=== PATIENT | female | born 1980 | race Caucasian/White ===

== ENCOUNTER 2022-03-02 20:49 | Emergency (ER) | payer OTHER ==
[2022-03-02 21:11] VITALS: BMI 26.0
[2022-03-02 22:51] LABS: BASO % 0.6 % (0-2.0); EOS % 7.2 % (0-4.5); HEMATOCRIT 33.7 % (32.4-45.2); HEMOGLOBIN 11.2 GM/dL (10.7-15.3); LYMPH % 16.7 % (8-40); MCH 27.9 pg (25.7-33.7); MCHC 33.4 g/dl (32.0-36.0); MEAN CELL VOLUME 83.5 fl (80-96); MONO % 7.4 % (3.8-10.2); NEUT % 68.1 % (42.8-82.8); PLATELET COUNT 225 10^3/uL (134-434); RBC 4.03 M/mm3 (3.60-5.2); RDW 14.4 % (11.6-15.6); WHITE BLOOD COUNT 5.5 K/mm3 (4.0-10.0)
[2022-03-02 23:44] LABS: ALBUMIN 2.8 g/dl (3.4-5.0); BILIRUBIN,TOTAL 0.4 mg/dL (0.2-1); BLOOD UREA NITROGEN 5.8 mg/dL (7-18); CALCIUM 7.6 mg/dL (8.5-10.1); CREATININE 0.5 mg/dL (0.55-1.3); TOT PROT 6.3 g/dl (6.4-8.2)
[2022-03-02] MEDS ORDERED: ACETAMINOPHEN 1000 MG/100 ML BAG IVPB ONE (23:44)
[2022-03-02] MEDS ORDERED: ALBUTEROL SO4 2.5/IPRATROPIUM 0.5 INH SOL 3 ML VIAL.NEB. NEB ONE (23:44)
[2022-03-02] MEDS ORDERED: SODIUM CHLORIDE 0.9% 500 ML INFUS.BAG IV ONE (23:44)
[2022-03-02] MEDS ORDERED: ACETAMINOPHEN INJECTION 100 ML IVPB ONE (23:57)
[2022-03-03 01:38] VITALS: BP 100/56; PULSE 80; TEMP 98.4
== END 2022-03-03 04:15 | disposition left against medical advice (07) ==
LOC: JER 20:49
PROC: 3E0333Z Introduction of Anti-inflammatory into Peripheral Vein, Percutaneous Approach (ICD-10-PCS; principal; 2022-03-02)
DX: R07.9 Chest pain, unspecified (principal); K83.9 Disease of biliary tract, unspecified; R79.89 Other specified abnormal findings of blood chemistry
CPT/HCPCS: 36415; 71046-TC-FY; 74177-TC; 76705-TC; 80053; 83690; 84484; 84703; 85025; 93005; 93010; 99285-25

== ENCOUNTER 2022-03-05 08:12 | Emergency (ER) | payer BC, OTHER ==
[2022-03-05 08:25] VITALS: TEMP 97.3; BMI 26.2
[2022-03-05] MEDS ORDERED: METOCLOPRAMIDE HCL INJECTION 10 MG/2 ML VIAL IVPUSH ONE (09:08)
[2022-03-05] MEDS ORDERED: SODIUM CHLORIDE 0.9% 500 ML INFUS.BAG IV ONE (09:08)
[2022-03-05] MEDS ORDERED: ACETAMINOPHEN 1000 MG/100 ML BAG IVPB ONE (09:09)
[2022-03-05] MEDS ORDERED: METOCLOPRAMIDE HCL INJECTION 10 MG/2 ML VIAL ONE (09:28)
[2022-03-05] MEDS ORDERED: ACETAMINOPHEN INJECTION 100 ML IVPB ONE (09:29)
[2022-03-05 10:36] LABS: BASO % 0.6 % (0-2.0); HEMATOCRIT 34.3 % (32.4-45.2); HEMOGLOBIN 11.4 GM/dL (10.7-15.3); LYMPH % 20.2 % (8-40); MCH 27.7 pg (25.7-33.7); MCHC 33.2 g/dl (32.0-36.0); MEAN CELL VOLUME 83.3 fl (80-96); MEAN PLT VOLUME 8.7 fl (7.5-11.1); MONO % 11.9 % (3.8-10.2); NEUT % 59.3 % (42.8-82.8); PLATELET COUNT 278 10^3/uL (134-434); RBC 4.11 M/mm3 (3.60-5.2); RDW 14.4 % (11.6-15.6); WHITE BLOOD COUNT 5.8 K/mm3 (4.0-10.0)
[2022-03-05 10:40] LABS: ALBUMIN 3.4 g/dl (3.4-5.0); BLOOD UREA NITROGEN 4.8 mg/dL (7-18)
[2022-03-05 10:42] LABS: CREATININE 0.6 mg/dL (0.55-1.3)
[2022-03-05 10:44] LABS: BILIRUBIN,TOTAL 0.4 mg/dL (0.2-1); TOT PROT 7.9 g/dl (6.4-8.2)
[2022-03-05] MEDS ORDERED: LIDOCAINE 5% TOPICAL PATCH TP ONE (12:10)
[2022-03-05] MEDS ORDERED: LIDOCAINE 5% TOPICAL PATCH ONE (12:14)
[2022-03-05 12:39] VITALS: BP 100/70; PULSE 78
[2022-03-05] MEDS ORDERED: LIDOCAINE PATCH REMOVAL MC SCH (23:00)
== END 2022-03-05 12:35 | disposition home or self-care (01) ==
LOC: JER 08:12
PROC: 3E033NZ Introduction of Analgesics, Hypnotics, Sedatives into Peripheral Vein, Percutaneous Approach (ICD-10-PCS; principal; 2022-03-05)
PROC: 3E033GC Introduction of Other Therapeutic Substance into Peripheral Vein, Percutaneous Approach (ICD-10-PCS; 2022-03-05)
DX: R51.9 Headache, unspecified (principal)
CPT/HCPCS: 36415; 70450-TC; 80053; 83690; 85025; 99285-25

== ENCOUNTER 2022-11-01 10:29 | Emergency (ER) | payer BC, OTHER ==
[2022-11-01 10:45] VITALS: BP 157/58; PULSE 84; RESP 20; TEMP 97.8; BMI 26.2
[2022-11-01] MEDS ORDERED: ALBUTEROL SO4 2.5/IPRATROPIUM 0.5 INH SOL 3 ML VIAL.NEB. NEB ONE ×2 (12:16→12:21)
[2022-11-01] MEDS ORDERED: predniSONE 20 MG TABLET (UD) PO ONE (12:20)
[2022-11-01] MEDS ORDERED: predniSONE 20 MG TABLET (UD) ONE (12:21)
== END 2022-11-01 12:57 | disposition home or self-care (01) ==
LOC: JER 10:29 → JERFT 10:29
PROC: 3E0F7GC Introduction of Other Therapeutic Substance into Respiratory Tract, Via Natural or Artificial Opening (ICD-10-PCS; principal; 2022-11-01)
DX: J45.21 Mild intermittent asthma with (acute) exacerbation (principal)
CPT/HCPCS: 71046-TC-FY; 99284-25

== ENCOUNTER 2023-04-12 14:02 | Emergency (ER) | payer BC, OTHER ==
[2023-04-12 14:10] VITALS: BP 109/55; PULSE 75; RESP 20; TEMP 98; BMI 26.0
[2023-04-12] MEDS ORDERED: ALBUTEROL SO4 2.5/IPRATROPIUM 0.5 INH SOL 3 ML VIAL.NEB. NEB ONE ×5 (14:23→15:54)
[2023-04-12] MEDS ORDERED: DEXAMETHASONE SOD PHOSPHATE 10 MG/1 ML VIAL IM ONE (14:59)
[2023-04-12] MEDS ORDERED: DEXAMETHASONE SOD PHOSPHATE 10 MG/1 ML VIAL ONE (14:59)
[2023-04-12] MEDS ORDERED: MAGNESIUM SULF 50% (8.12 MEQ/2 ML-1 GM VIAL) IVPB ONE (15:37)
[2023-04-12] MEDS ORDERED: MAGNESIUM SULFATE IN WATER 2 GM/50 ML IVPB IVPB ONE (15:57)
[2023-04-12 16:17] LABS: BASO % 0.7 % (0-2.0); EOS % 11.5 % (0-4.5); HEMATOCRIT 35.9 % (32.4-45.2); HEMOGLOBIN 11.7 GM/dL (10.7-15.3); LYMPH % 22.4 % (8-40); MCH 26.6 pg (25.7-33.7); MCHC 32.5 g/dl (32.0-36.0); MEAN CELL VOLUME 81.7 fl (80-96); MEAN PLT VOLUME 8.9 fl (7.5-11.1); MONO % 5.4 % (3.8-10.2); PLATELET COUNT 254 10^3/uL (134-434); RDW 17.6 % (11.6-15.6); WHITE BLOOD COUNT 8.5 K/mm3 (4.0-10.0)
[2023-04-12 16:34] LABS: CHLORIDE 107 mmol/L (98-107); POTASSIUM 4.1 mmol/L (3.5-5.1); SODIUM 140 mmol/L (136-145)
[2023-04-12 16:36] LABS: ALBUMIN 3.7 g/dl (3.4-5.0); ANION GAP 7 MMOL/L (8-16); CALCIUM 8.6 mg/dL (8.5-10.1); CO2 26 mmol/L (21-32)
[2023-04-12 16:37] LABS: GLUCOSE,RANDOM 97 mg/dL (74-106)
[2023-04-12 16:39] LABS: BILIRUBIN,DIRECT 0.1 mg/dL (0.0-0.2); CREATININE 0.6 mg/dL (0.55-1.3); SGOT/AST 17 U/L (15-37); SGPT/ALT 17 U/L (13-61)
[2023-04-12 16:41] LABS: BILIRUBIN,TOTAL 0.5 mg/dL (0.2-1); TOT PROT 7.4 g/dl (6.4-8.2)
[2023-04-12 16:42] LABS: ALK PHOS 90 U/L (45-117)
== END 2023-04-12 19:07 | disposition home or self-care (01) ==
LOC: JERFT 14:02 → JER 14:02 → JERFT 19:07
PROC: 3E033GC Introduction of Other Therapeutic Substance into Peripheral Vein, Percutaneous Approach (ICD-10-PCS; principal; 2023-04-12)
PROC: 3E023GC Introduction of Other Therapeutic Substance into Muscle, Percutaneous Approach (ICD-10-PCS; 2023-04-12)
PROC: 3E0F7GC Introduction of Other Therapeutic Substance into Respiratory Tract, Via Natural or Artificial Opening (ICD-10-PCS; 2023-04-12)
PROC: 3E0F7GC Introduction of Other Therapeutic Substance into Respiratory Tract, Via Natural or Artificial Opening (ICD-10-PCS; 2023-04-12)
PROC: 3E0F7GC Introduction of Other Therapeutic Substance into Respiratory Tract, Via Natural or Artificial Opening (ICD-10-PCS; 2023-04-12)
DX: J45.901 Unspecified asthma with (acute) exacerbation (principal); R06.02 Shortness of breath; R05.9 Cough, unspecified; Z20.822 Contact with and (suspected) exposure to COVID-19
CPT/HCPCS: 0241U-QW; 36415; 71046-TC-FY; 80048; 80076; 84702; 85025; 99285-25; J1100

== ENCOUNTER 2023-04-17 11:30 | Emergency (ER) | payer BC, OTHER ==
[2023-04-17 11:35] VITALS: BP 135/80; PULSE 99; RESP 18; BMI 25.7
[2023-04-17] MEDS ORDERED: DEXAMETHASONE SOD PHOSPHATE 10 MG/1 ML VIAL IVPUSH ONE (12:24)
[2023-04-17] MEDS ORDERED: DEXAMETHASONE SOD PHOSPHATE 10 MG/1 ML VIAL ONE (12:30)
[2023-04-17] MEDS: ALBUTEROL SO4 2.5/IPRATROPIUM 0.5 INH SOL 3 ML VIAL.NEB. NEB SCH ×3 (12:39→13:09)
== END 2023-04-17 15:22 | disposition home or self-care (01) ==
LOC: JER 11:30
PROC: 3E0F7GC Introduction of Other Therapeutic Substance into Respiratory Tract, Via Natural or Artificial Opening (ICD-10-PCS; principal; 2023-04-17)
PROC: 3E033GC Introduction of Other Therapeutic Substance into Peripheral Vein, Percutaneous Approach (ICD-10-PCS; 2023-04-17)
DX: J45.21 Mild intermittent asthma with (acute) exacerbation (principal); R06.02 Shortness of breath
CPT/HCPCS: 99284-25; J1100

== ENCOUNTER 2023-04-29 05:35 | Observation (INO) | payer BC, OTHER ==
[2023-04-29] MEDS ORDERED: ALBUTEROL SO4 2.5/IPRATROPIUM 0.5 INH SOL 3 ML VIAL.NEB. NEB ONE ×2 (05:44→12:29)
[2023-04-29] MEDS ORDERED: DEXAMETHASONE SOD PHOSPHATE 10 MG/1 ML VIAL IVPUSH ONE (05:46)
[2023-04-29] MEDS ORDERED: DEXAMETHASONE SOD PHOSPHATE 10 MG/1 ML VIAL ONE (05:47)
[2023-04-29] MEDS: ALBUTEROL SO4 2.5/IPRATROPIUM 0.5 INH SOL 3 ML VIAL.NEB. NEB SCH ×5 (05:49→23:28)
[2023-04-29 06:04] LABS: BASO % 0.7 % (0-2.0); EOS % 12.1 % (0-4.5); HEMOGLOBIN 12.1 GM/dL (10.7-15.3); LYMPH % 18.5 % (8-40); MCHC 32.6 g/dl (32.0-36.0); MEAN CELL VOLUME 82.8 fl (80-96); MEAN PLT VOLUME 9.4 fl (7.5-11.1); MONO % 5.1 % (3.8-10.2); NEUT % 63.6 % (42.8-82.8); PLATELET COUNT 291 10^3/uL (134-434); RBC 4.47 M/mm3 (3.60-5.2); RDW 17.4 % (11.6-15.6); WHITE BLOOD COUNT 10.6 K/mm3 (4.0-10.0)
[2023-04-29 06:20] LABS: POTASSIUM 4.3 mmol/L (3.5-5.1)
[2023-04-29 06:22] LABS: ALBUMIN 3.4 g/dl (3.4-5.0)
[2023-04-29 06:25] LABS: CREATININE 0.8 mg/dL (0.55-1.3)
[2023-04-29 06:27] LABS: BILIRUBIN,TOTAL 0.4 mg/dL (0.2-1); TOT PROT 7.2 g/dl (6.4-8.2)
[2023-04-29] MEDS ORDERED: ALBUTEROL SO4 0.083% IH SOL 2.5 MG/3 ML VIAL.NEB. NEB ONE ×5 (06:44→09:42)
[2023-04-29] MEDS ORDERED: MAGNESIUM SULF 50% (8.12 MEQ/2 ML-1 GM VIAL) IVPB ONE (06:54)
[2023-04-29] MEDS ORDERED: LACTATED RINGERS SOLUTION 1000 ML INFUS.BAG IV ONE (06:55)
[2023-04-29] MEDS ORDERED: MAGNESIUM SULFATE IN WATER 2 GM/50 ML IVPB IVPB ONE (06:59)
[2023-04-29 07:15] LABS: CALCIUM 8.7 mg/dL (8.5-10.1)
[2023-04-29] MEDS ORDERED: NAPROXEN 500 MG TABLET PO ONE (10:13)
[2023-04-29] MEDS ORDERED: NAPROXEN 500 MG TABLET ONE (10:29)
[2023-04-29] MEDS ORDERED: ALBUTEROL SO4 0.083% IH SOL 2.5 MG/3 ML VIAL.NEB. NEB PRN (11:51)
[2023-04-29] MEDS ORDERED: AZITHROMYCIN IVPB 500 MG/250 ML BAG IVPB ONE (12:29)
[2023-04-29] MEDS: AZITHROMYCIN IVPB 500 MG/250 ML BAG IVPB SCH (12:37)
[2023-04-29 14:13] VITALS: BMI 26.0
[2023-04-29] MEDS: methylPREDNISolone NA SUCC 40 MG/1 ML VIAL IVPUSH SCH (17:28)
[2023-04-29] MEDS: MONTELUKAST NA 10 MG TABLET PO SCH (21:53)
[2023-04-29] MEDS: HEPARIN NA (PORCINE) 5,000 UNITS/ML 1ML VIAL SQ SCH (21:53)
[2023-04-30] MEDS: methylPREDNISolone NA SUCC 40 MG/1 ML VIAL IVPUSH SCH ×3 (02:05→17:25)
[2023-04-30] MEDS: ALBUTEROL SO4 2.5/IPRATROPIUM 0.5 INH SOL 3 ML VIAL.NEB. NEB SCH ×5 (04:45→20:08)
[2023-04-30] MEDS: HEPARIN NA (PORCINE) 5,000 UNITS/ML 1ML VIAL SQ SCH ×3 (09:58→21:47)
[2023-04-30] MEDS: AZITHROMYCIN IVPB 500 MG/250 ML BAG IVPB SCH (09:59)
[2023-04-30] MEDS: MONTELUKAST NA 10 MG TABLET PO SCH (21:43)
[2023-05-01] MEDS: ALBUTEROL SO4 2.5/IPRATROPIUM 0.5 INH SOL 3 ML VIAL.NEB. NEB SCH ×6 (00:04→21:05)
[2023-05-01] MEDS: methylPREDNISolone NA SUCC 40 MG/1 ML VIAL IVPUSH SCH (01:22)
[2023-05-01 04:09] VITALS: RESP 18
[2023-05-01 09:11] LABS: BASO % 0.2 % (0-2.0); HEMATOCRIT 34.7 % (32.4-45.2); HEMOGLOBIN 11.3 GM/dL (10.7-15.3); LYMPH % 7.1 % (8-40); MCH 26.6 pg (25.7-33.7); MCHC 32.7 g/dl (32.0-36.0); MEAN CELL VOLUME 81.2 fl (80-96); MEAN PLT VOLUME 9.2 fl (7.5-11.1); MONO % 1.8 % (3.8-10.2); NEUT % 90.9 % (42.8-82.8); PLATELET COUNT 279 10^3/uL (134-434); RBC 4.27 M/mm3 (3.60-5.2); RDW 17.6 % (11.6-15.6); WHITE BLOOD COUNT 15.8 K/mm3 (4.0-10.0)
[2023-05-01 09:21] LABS: POTASSIUM 4.2 mmol/L (3.5-5.1)
[2023-05-01 09:27] LABS: CALCIUM 9.1 mg/dL (8.5-10.1)
[2023-05-01 09:28] LABS: BLOOD UREA NITROGEN 12.5 mg/dL (7-18)
[2023-05-01 09:31] LABS: CREATININE 0.7 mg/dL (0.55-1.3)
[2023-05-01] MEDS: AZITHROMYCIN IVPB 500 MG/250 ML BAG IVPB SCH (09:40)
[2023-05-01] MEDS: HEPARIN NA (PORCINE) 5,000 UNITS/ML 1ML VIAL SQ SCH ×2 (09:42→21:42)
[2023-05-01] MEDS ORDERED: methylPREDNISolone NA SUCC 40 MG/1 ML VIAL IVPUSH SCH (10:00)
[2023-05-01] MEDS: FLUTICASONE PROP 0.05% 16 GM NASAL SPRAY NS SCH (10:45)
[2023-05-01] MEDS: predniSONE 20 MG TABLET (UD) PO SCH (21:42)
[2023-05-01] MEDS: MONTELUKAST NA 10 MG TABLET PO SCH (21:42)
[2023-05-02] MEDS: ALBUTEROL SO4 2.5/IPRATROPIUM 0.5 INH SOL 3 ML VIAL.NEB. NEB SCH ×5 (00:05→16:00)
[2023-05-02] MEDS: predniSONE 20 MG TABLET (UD) PO SCH (09:37)
[2023-05-02] MEDS: HEPARIN NA (PORCINE) 5,000 UNITS/ML 1ML VIAL SQ SCH (09:40)
[2023-05-02] MEDS: FLUTICASONE PROP 0.05% 16 GM NASAL SPRAY NS SCH (09:40)
[2023-05-02] MEDS ORDERED: predniSONE 20 MG TABLET (UD) PO SCH (10:00)
[2023-05-02 10:24] LABS: BASO % 0.1 % (0-2.0); HEMATOCRIT 37.6 % (32.4-45.2); HEMOGLOBIN 12.3 GM/dL (10.7-15.3); LYMPH % 8.8 % (8-40); MCH 26.6 pg (25.7-33.7); MCHC 32.6 g/dl (32.0-36.0); MEAN CELL VOLUME 81.5 fl (80-96); MONO % 2.9 % (3.8-10.2); NEUT % 88.2 % (42.8-82.8); PLATELET COUNT 299 10^3/uL (134-434); RBC 4.61 M/mm3 (3.60-5.2); RDW 17.5 % (11.6-15.6); WHITE BLOOD COUNT 13.1 K/mm3 (4.0-10.0)
[2023-05-02 10:30] LABS: POTASSIUM 4.2 mmol/L (3.5-5.1)
[2023-05-02 10:35] LABS: CALCIUM 9.5 mg/dL (8.5-10.1)
[2023-05-02 10:39] LABS: CREATININE 0.6 mg/dL (0.55-1.3)
[2023-05-02 14:09] VITALS: BP 110/65; PULSE 95; TEMP 98.3
[2023-05-03] MEDS ORDERED: predniSONE 20 MG TABLET (UD) PO ONE (10:00)
[2023-05-04] MEDS ORDERED: predniSONE 20 MG TABLET (UD) PO ONE (10:00)
[2023-05-05] MEDS ORDERED: predniSONE 10 MG TABLET (UD) PO ONE (10:00)
[2023-05-06] MEDS ORDERED: predniSONE 5 MG TABLET (UD) PO ONE (10:00)
== END 2023-05-02 18:46 | disposition home or self-care (01) ==
LOC: JER 05:35 → JERBED 11:20 → J6S 13:04
PROVIDERS: ADMIT Internal Medicine; ATTEND Internal Medicine
PROC: 3E0F7GC Introduction of Other Therapeutic Substance into Respiratory Tract, Via Natural or Artificial Opening (ICD-10-PCS; principal; 2023-04-29)
PROC: 3E03329 Introduction of Other Anti-infective into Peripheral Vein, Percutaneous Approach (ICD-10-PCS; 2023-04-29)
PROC: 3E033GC Introduction of Other Therapeutic Substance into Peripheral Vein, Percutaneous Approach (ICD-10-PCS; 2023-04-29)
PROC: 3E0337Z Introduction of Electrolytic and Water Balance Substance into Peripheral Vein, Percutaneous Approach (ICD-10-PCS; 2023-04-29)
DX: J45.901 Unspecified asthma with (acute) exacerbation (principal); Z88.2 Allergy status to sulfonamides; R06.02 Shortness of breath
CPT/HCPCS: 0241U-QW; 36415; 71045-TC-FY; 80048; 80053; 85025; 93005; 93010; 94150; 94640; 99285-25; G0378; J1100; J1644

== ENCOUNTER 2023-08-29 18:38 | Emergency (ER) | payer BC, OTHER ==
[2023-08-29 19:18] VITALS: BP 106/71; PULSE 79; RESP 18; TEMP 98.4; BMI 28.0
[2023-08-29] MEDS ORDERED: DEXAMETHASONE SOD PHOSPHATE 10 MG/1 ML VIAL IM ONE (19:45)
[2023-08-29] MEDS ORDERED: DEXAMETHASONE SOD PHOSPHATE 10 MG/1 ML VIAL ONE (20:07)
[2023-08-29] MEDS ORDERED: ALBUTEROL SO4 2.5/IPRATROPIUM 0.5 INH SOL 3 ML VIAL.NEB. NEB ONE ×3 (20:07→20:49)
[2023-08-29] MEDS: ALBUTEROL SO4 2.5/IPRATROPIUM 0.5 INH SOL 3 ML VIAL.NEB. NEB SCH ×3 (20:16→20:52)
== END 2023-08-29 22:06 | disposition home or self-care (01) ==
LOC: JER 18:38
PROC: 3E023GC Introduction of Other Therapeutic Substance into Muscle, Percutaneous Approach (ICD-10-PCS; principal; 2023-08-29)
PROC: 3E0F7GC Introduction of Other Therapeutic Substance into Respiratory Tract, Via Natural or Artificial Opening (ICD-10-PCS; 2023-08-29)
DX: J45.901 Unspecified asthma with (acute) exacerbation (principal); R06.02 Shortness of breath; R05.9 Cough, unspecified; R07.89 Other chest pain; J06.9 Acute upper respiratory infection, unspecified; Z20.822 Contact with and (suspected) exposure to COVID-19
CPT/HCPCS: 0241U-QW; 71046-TC-FY; 93005; 93010; 99285-25; J1100

== ENCOUNTER 2023-12-20 15:35 | Emergency (ER) | payer BC, OTHER ==
[2023-12-20 16:06] VITALS: RESP 16; BMI 28.0
[2023-12-20] MEDS ORDERED: DEXAMETHASONE SOD PHOSPHATE 10 MG/1 ML VIAL ONE (18:00)
[2023-12-20] MEDS ORDERED: ALBUTEROL SO4 2.5/IPRATROPIUM 0.5 INH SOL 3 ML VIAL.NEB. NEB ONE (18:00)
[2023-12-20] MEDS: DEXAMETHASONE SOD PHOSPHATE 10 MG/1 ML VIAL PO ONE (18:05)
[2023-12-20] MEDS: ALBUTEROL SO4 2.5/IPRATROPIUM 0.5 INH SOL 3 ML VIAL.NEB. NEB SCH (18:05)
[2023-12-20 18:40] VITALS: BP 127/56; PULSE 82; TEMP 97.9
== END 2023-12-20 19:32 | disposition home or self-care (01) ==
LOC: JER 15:35
PROC: 3E0F7GC Introduction of Other Therapeutic Substance into Respiratory Tract, Via Natural or Artificial Opening (ICD-10-PCS; principal; 2023-12-20)
DX: R07.89 Other chest pain (principal); R06.02 Shortness of breath; J45.901 Unspecified asthma with (acute) exacerbation
CPT/HCPCS: 85379; 99283-25; J1100